=== PATIENT | male | born 1985 | race Caucasian/White ===

== ENCOUNTER 2018-04-20 05:56 | Emergency (ER) | payer BC ==
[2018-04-20] MEDS ORDERED: Ondansetron 4 MG/2 ML SDV IVPUSH ONE (06:36)
[2018-04-20] MEDS ORDERED: HYDROmorphone 0.5 MG/0.5 ML Syringe IVPUSH ONE (06:37)
[2018-04-20] MEDS: Sodium Chloride 0.9% 1,000 ML IV SCH ×2 (06:43→08:23)
--- NOTE | 2018-04-20 07:16 | EDM.PDOC ---
<Noreen Alston - Last Filed: 04/20/18 07:10> ED HPI GENERAL MEDICAL PROBLEM - General Chief Complaint: Abdominal Pain Stated Complaint: ABD/VOMITING Time Seen by Provider: 04/20/18 06:20 Source of Information: Reports: Patient History Limitations: Reports: No Limitations - History of Present Illness INITIAL COMMENTS - FREE TEXT/NARRATIVE: pt arrived with pain in the rt upper abdoman. He acted like he was splinting and he couldn,t get a deep breath. He has low temops. He is feeling naseated. Onset: Today, Other (pt has not felt well all nite. ) Duration: Hour(s): Location: Reports: Chest, Abdomen Associated Symptoms: Reports: Diaphoresis, Malaise, Nausea/Vomiting Left Middle Abdomen Pain Score (Numeric/FACES): 5 - Related Data Allergies Allergy/AdvReac Type Severity Reaction Status Date / Time codeine Allergy Rash Verified 04/20/18 06:47 Penicillins Allergy Rash Verified 04/20/18 06:47 Home Meds: Home Meds NK [No Known Home Meds] 04/20/18 [History] Past Medical History - Past Health History Medical/Surgical History: Denies Medical/Surgical History Social & Family History - Tobacco Use Smoking Status *Q: Current Every Day Smoker Years of Tobacco use: 15 Packs/Tins Daily: 0.5 - Caffeine Use Caffeine Use: Reports: Coffee, Soda - Recreational Drug Use Recreational Drug Use: No ED ROS GENERAL - Review of Systems Review Of Systems: See Below Constitutional: Reports: Malaise, Weakness, Other ( temp is actually low) HEENT: Reports: No Symptoms Respiratory: Reports: Other ( He kept pointing to pain in his lower chest on arrival. ) Cardiovascular: Reports: No Symptoms Endocrine: Reports: No Symptoms GI/Abdominal: Reports: Diarrhea, Nausea, Vomiting, Other (pt was nauseated on arrival and he started to vomit. He acted like he was having pain with deep breathing. A chest xray was obtained which was neg. ) : Reports: No Symptoms, Other (pt does not have a history of a kidney stone. ) Musculoskeletal: Reports: No Symptoms Skin: Reports: No Symptoms Neurological: Reports: No Symptoms ED EXAM, GI/ABD - Physical Exam Exam: See Below Text/Narrative:: pt arrived complaining of difficulty breathing on the rt. He was talking about pain in the rt upper abdoman. He was nauseated and did vomit. Exam Limited By: No Limitations General Appearance: Alert, Severe Distress, Other (pt appears very agitated. ) Ears: Normal TMs Nose: Normal Inspection Throat/Mouth: Normal Inspection Head: Atraumatic Neck: Normal Inspection Respiratory/Chest: No Respiratory Distress, Other ( He did talk about pain in the rt lower lung field) Cardiovascular: Regular Rate, Rhythm, Tachycardia GI/Abdominal Exam: Soft, Other (pt is talking about pain in the upper rt abdoman. ) (Male) Exam: Deferred Rectal (Males) Exam: Deferred Back Exam: Normal Inspection Extremities: Normal Inspection Neurological: Alert, Oriented, Normal Cognition Psychiatric: Normal Affect Course - Vital Signs Last Recorded V/S: Last Vital Signs Temp 95.2 F L 04/20/18 06:48 Pulse 49 L 04/20/18 06:48 Resp 16 04/20/18 06:48 BP 147/84 H 04/20/18 06:48 Pulse Ox 100 04/20/18 06:48 - Orders/Labs/Meds Orders: Active Orders 24 hr Category Date Time Status Abdomen 1V Upright [CR] Stat Exams 04/20/18 07:58 Taken Abdomen Pelvis w Cont [CT] Stat Exams 04/20/18 09:32 Taken Chest 2V [CR] Stat Exams 04/20/18 06:26 Taken UA W/MICROSCOPIC [URIN] Urgent Lab 04/20/18 07:14 Ordered Iopamidol [Isovue-300 (61%)] Med 04/20/18 09:39 Active 150 ml IV . DIRECTED PRN Sodium Chloride 0.9% [Normal Saline] 1,000 ml Med 04/20/18 06:30 Active IV ASDIRECTED Sodium Chloride 0.9% [Normal Saline] 85 ml Med 04/20/18 09:45 Active IV ASDIRECTED Medication Orders Sodium Chloride (Normal Saline) 1,000 mls @ 999 mls/hr IV ASDIRECTED FOSTER Last Admin: 04/20/18 08:23 Dose: 999 mls/hr Infusion: 04/20/18 07:44 Dose: 999 mls/hr Admin: 04/20/18 06:43 Dose: 999 mls/hr Sodium Chloride (Normal Saline) 85 mls @ 3.5 mls/sec IV ASDIRECTED FOSTER Last Admin: 04/20/18 09:56 Dose: 3.5 mls/sec Iopamidol (Isovue-300 (61%)) 150 ml IV . DIRECTED PRN PRN Reason: RADIOLOGY EXAM Stop: 04/21/18 09:40 Last Admin: 04/20/18 09:56 Dose: 150 ml Labs: Laboratory Tests 04/20/18 04/20/18 04/20/18 Range/Units 06:41 06:41 06:41 WBC 12.0 H (4.5-11.0) K/uL RBC 5.17 (4.30-5.90) M/uL Hgb 16.0 H (12.0-15.0) g/dL Hct 45.2 (40.0-54.0) % MCV 87 (80-98) fL MCH 31 (27-31) pg MCHC 35 (32-36) % Plt Count 248 (150-400) K/uL Neut % (Auto) 76 H (36-66) % Lymph % (Auto) 18 L (24-44) % [place] % (Auto) 6 (2-6) % Eos % (Auto) 1 L (2-4) % Baso % (Auto) 0 (0-1) % Sodium 139 L (140-148) mmol/L Potassium 3.5 L (3.6-5.2) mmol/L Chloride 102 (100-108) mmol/L Carbon Dioxide 22 (21-32) mmol/L Anion Gap 18.5 H (5.0-14.0) mmol/L BUN 13 (7-18) mg/dL Creatinine 0.9 (0.8-1.3) mg/dL Est Cr Clr Drug Dosing 116.74 mL/min Estimated GFR (MDRD) > 60 (>60) Glucose 139 H (74-106) mg/dL Calcium 8.8 (8.5-10.1) mg/dL Total Bilirubin 0.4 (0.2-1.0) mg/dL AST 22 (15-37) U/L ALT 30 (12-78) U/L Alkaline Phosphatase 66 (46-116) U/L CK-MB (CK-2) (0-3.6) mg/mL Troponin I (0.000-0.056) ng/mL C-Reactive Protein 0.34 H (0.0-0.3) mg/dL Total Protein 7.1 (6.4-8.2) g/dL Albumin 4.0 (3.4-5.0) g/dL Globulin 3.1 (2.3-3.5) g/dL Albumin/Globulin Ratio 1.3 (1.2-2.2) Lipase (73-393) U/L Urine Color Urine Appearance Urine pH (4.5-8.0) Ur Specific [place] (1.008-1.030) Urine Protein (NEGATIVE) mg/dL Urine Glucose (UA) (NEGATIVE) mg/dL Urine Ketones (NEGATIVE) mg/dL Urine Occult Blood (NEGATIVE) Urine Nitrite (NEGAITVE) Urine Bilirubin (NEGATIVE) Urine Urobilinogen (NORMAL) mg/dL Ur Leukocyte Esterase (NEGATIVE) Urine RBC (0-5) Urine WBC (0-5) Ur Epithelial Cells Amorphous Sediment Urine Bacteria Urine Mucus 04/20/18 04/20/18 04/20/18 Range/Units 07:14 07:21 08:08 WBC (4.5-11.0) K/uL RBC (4.30-5.90) M/uL Hgb (12.0-15.0) g/dL Hct (40.0-54.0) % MCV (80-98) fL MCH (27-31) pg MCHC (32-36) % Plt Count (150-400) K/uL Neut % (Auto) (36-66) % Lymph % (Auto) (24-44) % [place] % (Auto) (2-6) % Eos % (Auto) (2-4) % Baso % (Auto) (0-1) % Sodium (140-148) mmol/L Potassium (3.6-5.2) mmol/L Chloride (100-108) mmol/L Carbon Dioxide (21-32) mmol/L Anion Gap (5.0-14.0) mmol/L BUN (7-18) mg/dL Creatinine (0.8-1.3) mg/dL Est Cr Clr Drug Dosing mL/min Estimated GFR (MDRD) (>60) Glucose (74-106) mg/dL Calcium (8.5-10.1) mg/dL Total Bilirubin (0.2-1.0) mg/dL AST (15-37) U/L ALT (12-78) U/L Alkaline Phosphatase (46-116) U/L CK-MB (CK-2) 1.4 (0-3.6) mg/mL Troponin I < 0.017 (0.000-0.056) ng/mL C-Reactive Protein (0.0-0.3) mg/dL Total Protein (6.4-8.2) g/dL Albumin (3.4-5.0) g/dL Globulin (2.3-3.5) g/dL Albumin/Globulin Ratio (1.2-2.2) Lipase 55 L (73-393) U/L Urine Color Yellow Urine Appearance Clear Urine pH 9.0 H (4.5-8.0) Ur Specific [place] 1.010 (1.008-1.030) Urine Protein Negative (NEGATIVE) mg/dL Urine Glucose (UA) Normal (NEGATIVE) mg/dL Urine Ketones 15 H (NEGATIVE) mg/dL Urine Occult Blood Negative (NEGATIVE) Urine Nitrite Negative (NEGAITVE) Urine Bilirubin Negative (NEGATIVE) Urine Urobilinogen Normal (NORMAL) mg/dL Ur Leukocyte Esterase Negative (NEGATIVE) Urine RBC Not seen (0-5) Urine WBC 0-5 (0-5) Ur Epithelial Cells Not seen Amorphous Sediment Rare Urine Bacteria Not seen Urine Mucus Not seen Meds: Medications Generic Name Dose Route Start Last Admin Trade Name Freq PRN Reason Stop Dose Admin Sodium Chloride 1,000 mls @ 999 mls/hr 04/20/18 06:30 04/20/18 08:23 Normal Saline IV 999 mls/hr ASDIRECTED FOSTER Administration Sodium Chloride 85 mls @ 3.5 mls/sec 04/20/18 09:45 04/20/18 09:56 Normal Saline IV 3.5 mls/sec ASDIRECTED FOSTER Administration Iopamidol 150 ml 04/20/18 09:39 04/20/18 09:56 Isovue-300 (61%) IV 04/21/18 09:40 150 ml . DIRECTED PRN Administration RADIOLOGY EXAM Discontinued Medications Generic Name Dose Route Start Last Admin Trade Name Freq PRN Reason Stop Dose Admin Al Hydroxide/Mg Hydroxide 15 0 ml 04/20/18 08:08 04/20/18 08:21 ml/ Lidocaine HCl 15 ml PO 04/20/18 08:09 30 ml ONETIME ONE Administration Hydromorphone HCl 0.5 mg 04/20/18 06:37 04/20/18 06:43 Dilaudid IVPUSH 04/20/18 06:38 0.5 mg ONETIME ONE Administration Hydromorphone HCl 1 mg 04/20/18 10:03 04/20/18 10:17 Dilaudid IVPUSH 04/20/18 10:04 1 mg ONETIME ONE Administration Ondansetron HCl 4 mg 04/20/18 06:36 04/20/18 06:43 Zofran IVPUSH 04/20/18 06:37 4 mg ONETIME ONE Administration Departure - Departure Disposition: Home, Self-Care 01 Clinical Impression: Epigastric abdominal pain - Discharge Information Referrals: PCP,None [Primary Care Provider] - Forms: ED Department Discharge Additional Instructions: Use hydrocodone as needed for pain control, please follow-up with your primary care provider upon return home, call or return to the emergency department worsening of symptoms - My Orders Last 24 Hours: My Active Orders 04/20/18 07:58 Abdomen 1V Upright [CR] Stat 04/20/18 09:32 Abdomen Pelvis w Cont [CT] Stat 04/20/18 09:39 Iopamidol [Isovue-300 (61%)] 150 ml IV . DIRECTED PRN 04/20/18 09:45 Sodium Chloride 0.9% [Normal Saline] 85 ml IV ASDIRECTED - Assessment/Plan Last 24 Hours: My Active Orders 04/20/18 07:58 Abdomen 1V Upright [CR] Stat 04/20/18 09:32 Abdomen Pelvis w Cont [CT] Stat 04/20/18 09:39 Iopamidol [Isovue-300 (61%)] 150 ml IV . DIRECTED PRN 04/20/18 09:45 Sodium Chloride 0.9% [Normal Saline] 85 ml IV ASDIRECTED <OfficerSarthak - Last Filed: 04/20/18 11:17> Course - Re-Assessments/Exams Free Text/Narrative Re-Assessment/Exam: 04/20/18 07:59 Took over care from Dr. Alston at 7:30 this morning, patient presented with sudden onset abdominal pain left upper quadrant and difficulty breathing and thus far lab work and image studies have been inconclusive for any etiology to his pain, I reexamined his abdomen is soft and nontender I can't palpate any masses no distention he is relatively pain-free and free of nausea at this time. Departure - Departure Time of Disposition: 11:17 Condition: Fair - Assessment/Plan Plan: Assessment Acuity = acute Site and laterality = epigastric abdominal pain Etiology = unclear etiology Manifestations = none Location of injury = Home Lab values = WBC elevated at 12.0 consistent leukocytosis, troponin is negative , CMP unremarkable, urinalysis unremarkable CT scan of the abdomen shows no acute process Plan I did review lab work CT scan results with him he was able to rest comfortably for several hours after being provided Dilaudid, discharge home with hydrocodone 5/325 one tablet by mouth 3 times a day when necessary total #10 he' ll follow-up with his primary care provider upon return home This note was dictated using [employer] voice recognition software please call with any questions on syntax or grammar.
[2018-04-20] MEDS ORDERED: Alum Hydrox/Mag Hydrox/Simeth 15 ML, Lidocaine 2% 15 ML PO ONE ×2 (08:08)
[2018-04-20] MEDS ORDERED: Iopamidol 612 MG/ML 150 ML Bottle IV PRN (09:39)
[2018-04-20] MEDS ORDERED: HYDROmorphone 1 MG/ML Syringe IVPUSH ONE (10:03)
--- NOTE | 2018-04-22 09:07 | CR ---
CHEST: Epigastric pain CLINICAL HISTORY:Epigastric pain COMPARISON:None FINDINGS: Heart size and pulmonary vascularity are normal. No infiltrate effusion or pneumothorax is seen.. IMPRESSION: No acute cardiopulmonary process
--- NOTE | 2018-04-22 09:13 | CR ---
Abdomen 1V Upright CLINICAL HISTORY: Left upper quadrant pain FINDINGS: Intestinal gas pattern is nonacute. No definite urinary calcifications are seen. IMPRESSION: Nonacute intestinal gas pattern
== END 2018-04-20 11:43 | disposition home or self-care (01) ==
LOC: JP.ED 05:56
DX: R10.13 Epigastric pain (principal); F17.210 Nicotine dependence, cigarettes, uncomplicated; Z88.0 Allergy status to penicillin; Z88.5 Allergy status to narcotic agent
CPT/HCPCS: 36415; 71046; 74018; 74177; 80053; 81001; 82553; 83690; 84484; 85025; 86140; 96361; 96374; 96375; 96376; 99285; A9270; J1170; J2405; J7030